=== PATIENT | female | born 1985 | race Two or more races ===

== ENCOUNTER 2020-08-22 14:15 | Inpatient (IN) | payer OTHER ==
[~2020-08-22] VITALS: Ht 167.6 cm; Wt 96.6 kg
[2020-09-12] MEDS ORDERED: IRON325 MG PO (06:22)
[2020-09-12] MEDS ORDERED: PRENATAL TABLE1 EAC3 PO (06:22)
[2020-09-12] MEDS ORDERED: FOLIVANE-PLUS1 EACH (13:11)
== END 2020-09-14 18:49 | disposition home or self-care (01) | DRG 807 ==
LOC: OB/GYN 09-12 05:04 → LDR 09-12 05:04 → OB/GYN 09-12 20:10
PROVIDERS: ADMIT Obstetrics & Gynecology; ATTEND Obstetrics & Gynecology
PROC: 10E0XZZ Delivery of Products of Conception, External Approach (ICD-10-PCS; principal; 2020-09-12)
PROC: 0HQ9XZZ Repair Perineum Skin, External Approach (ICD-10-PCS; 2020-09-12)
PROC: 10907ZC Drainage of Amniotic Fluid, Therapeutic from Products of Conception, Via Natural or Artificial Opening (ICD-10-PCS; 2020-09-12)
PROC: 3E033VJ Introduction of Other Hormone into Peripheral Vein, Percutaneous Approach (ICD-10-PCS; 2020-09-12)
PROC: 4A1HXFZ Monitoring of Products of Conception, Cardiac Rhythm, External Approach (ICD-10-PCS; 2020-09-12)
DX: O70.0 First degree perineal laceration during delivery (principal); Z37.0 Single live birth; O48.0 Post-term pregnancy; Z3A.40 40 weeks gestation of pregnancy; Z20.822 Contact with and (suspected) exposure to COVID-19

== ENCOUNTER 2020-09-10 09:55 | Outpatient (CLI) | payer OTHER | END 2020-09-10 10:53 | disposition home or self-care (01) | LOC: NST 09:55 | PROVIDERS: ATTEND Obstetrics & Gynecology | DX: Z34.83 Encounter for supervision of other normal pregnancy, third trimester (principal) ==